=== PATIENT | female | born 1985 | race Caucasian/White ===

== ENCOUNTER 2016-06-28 11:09 | Emergency (ER) | payer BC ==
[~2016-06-28] VITALS: Ht 175.3 cm; Wt 76.2 kg
[~2016-06-28 11:09] MED LIST: CITA40TA19 PO; CYCL10TA9 PO; NAPR-243 PO; SPIR100T28 PO; ZLP10T PO; [UNRECOGNIZED DRUG - REMARK]
--- OUTSIDE RECORDS SUMMARY | 2016-06-28 11:15 | XMS REPORT | Continuity of Care Document ---
Author Author [facility] Organization [facility] Address Unknown Phone Unavailable Allergies Medications Problems Date Dx Coded Attending Type Code Diagnosis Diagnosed By 11/24/2013 MICHELLE VYAS APRN V25.09 CONTRACEPTIVE COUNSELING - GENERAL 11/24/2013 MICHELLE VYAS APRN V25.09 CONTRACEPTIVE COUNSELING - GENERAL 01/06/2014 MICHELLE VYAS APRN V25.5 IMPLANON INSERTION Procedures Code [place] [address] IMPLANON INSERTION 01/06/2014 J7307 ETONOGESTREL IMPLANT SYSTEM 01/06/2014 69503 TEST, URINE (IN-HOUSE) 01/07/2014 Results Encounters ACCT No. Visit Date/Time Discharge Status Pt. Type Provider Facility Loc./Unit Complaint [id number] 04/30/2013 12:39:00 2012 23:59:59 CLS Outpatient [id number] 01/16/2013 07:59:00 2012 23:59:59 CLS Outpatient
[2016-06-28 12:00] LABS: BILIRUBIN,URINE NEGATIVE (NEGATIVE); KETONES,URINE NEGATIVE (NEGATIVE); LEUKOCYTE ESTERASE ,URINE 1+ (NEGATIVE); NITRITE,URINE NEGATIVE (NEGATIVE); PH,URINE 6 (5-9); PROTEIN,URINE NEGATIVE (NEGATIVE); UROBILINOGEN,URINE NORMAL (NORMAL)
[2016-06-28 12:11] LABS: WBC,URINE RARE /HPF
--- NOTE | 2016-06-28 12:18 | ED Abdominal Pain ---
General Chief Complaint: Abdominal/GI Problems Stated Complaint: ABD PAIN Nursing Triage Note: PT STATES SHE WAS STARTED ON TRUJENTA ABOUT 2 WEEKS AGO FOR TYPE II DIABETES, WAS DC'D DUE TO THE HEADACHES AND ABD PAIN THAT THE MED CAUSED. MED STOPPED ON 06/25/16. PT STILL HAS ABD PAIN, FEELS LIKE SHE CAN'T EAT ANYTHING WITHOUT FEELING FULL. DIARRHEA NOW, LAST NORMAL BM YESTERDAY, DENIES URINARY S/S. VOMITED ON 06/22/16 Sepsis Screen: No Definite Risk Source of Information: Patient Exam Limitations: No Limitations History of Present Illness Time Seen By Provider: 12:16 Initial Comments To ER with epigastric abdominal pain just beneath the xiphoid for the past 2 weeks. This is worsened by food and liquids. She does report loose stools that are light colored. She believes this may be her gallbladder she was started on Tardjenta for type II diabetes a few weeks ago and believes that the symptoms may have been secondary to the new medication but that medication was stopped due to her symptoms and her symptoms persist. She states to me that she does not believe this to be a viral infection Timing/Duration: 1-2 Days Severity/Quality: Moderate Location: RUQ, Epigastric Radiation: No Radiation Activities at Onset: None Associated Symptoms: Nausea/Vomiting Allergies and Home Medications Allergies Coded Allergies: No Known Drug Allergies (Unverified , 01/06/12) Home Medications DAILY (Reported) Citalopram Hydrobromide 40 Mg Tablet 1 EACH PO DAILY (Reported) Cyclobenzaprine Hcl 10 Mg Tablet #15 1 EACH PO Q8HR PRN FOR MUSCLE SPASMS Prescribed by: TONO HARRINGTON on 01/06/12 1202 Famotidine 20 Mg Tablet #14 20 MG PO BID Prescribed by: VERO GARDINER on 06/28/16 1253 Naproxen 500 Mg Tablet #20 1 EACH PO TID PRN FOR PAIN Prescribed by: TONO HARRINGTON on 01/06/12 1202 Spironolactone 100 Mg Tablet 100 MG PO (Reported) Zolpidem Tartrate 10 Mg Tab 10 MG PO HS (Reported) Review of Systems Constitutional: see HPI EENTM: No Symptoms Reported Respiratory: No Symptoms Reported Cardiovascular: No Symptoms Reported Gastrointestinal: See HPI Abdominal Pain Nausea Genitourinary: No Symptoms Reported Musculoskeletal: no symptoms reported Skin: no symptoms reported Psychiatric/Neurological: No Symptoms Reported Endocrine: No Symptoms Reported Hematologic/Lymphatic: No Symptoms Reported Past Xaotwdq-Odtxqk-Ylctco Hx Patient Social History Alcohol Use: Occasionally Uses Recreational Drug Use: No Smoking Status: Never a Smoker Recent Foreign Travel: No Contact w/Someone Who Travel: No Recent Infectious Disease Expo: No Recent Hopitalizations: No Seasonal Allergies Seasonal Allergies: No Surgeries HX Surgeries: Yes Surgeries: Appendectomy, Cystectomy Respiratory Hx Respiratory Disorders: No Cardiovascular Hx Cardiac Disorders: No Neurological Hx Neurological Disorders: No Reproductive System : No HIV/AIDS: Yes Female Reproductive Disorders: Ovarian Cyst, Polycystic Ovarian Dis Genitourinary Hx Genitourinary Disorders: No Gastrointestinal Hx Gastrointestinal Disorders: No Musculoskeletal Hx Musculoskeletal Disorders: No Endocrine Hx Endocrine Disorders: Yes (POSSIBLY TYPE II) Endocrine Disorders: Diabetes, Non-Insulin dep HEENT HX ENT Disorders: No Cancer Hx Cancer: No Psychosocial Hx Psychiatric Problems: No Integumentary HX Skin/Integumentary Disorder: No Blood Transfusions Hx Blood Disorders: Yes (ANEMIC) Physical Exam Vital Signs VS - Last 72 Hours, by Label 06/28/16 11:42 Temp 97.8 Pulse 71 Resp 20 B/P 117/74 Pulse Ox 98 O2 Delivery Room Air Capillary Refill : Less Than 3 Seconds General Appearance: WD/WN no apparent distress HEENT: PERRL/EOMI normal ENT inspection Neck: non-tender full range of motion Respiratory: normal breath sounds no respiratory distress no accessory muscle use Cardiovascular: regular rate, rhythm no murmur Gastrointestinal: non tender soft Extremities: normal range of motion non-tender Neurologic/Psychiatric: alert normal mood/affect oriented x 3 Skin: normal color warm/dry Progress/Results/Core Measures Results/Orders Lab Results Laboratory Tests Test 06/28/16 11:50 06/28/16 12:00 Range/Units Urine Bacteria NEGATIVE /HPF Urine Bilirubin NEGATIVE NEGATIVE Urine Casts NONE /LPF Urine Clarity CLEAR Urine Color YELLOW Urine Crystals NONE /LPF Urine Culture Indicated NO Urine Glucose (UA) NEGATIVE NEGATIVE Urine Ketones NEGATIVE NEGATIVE Urine Leukocyte Esterase 1+ H NEGATIVE Urine Mucus NEGATIVE /LPF Urine Nitrite NEGATIVE NEGATIVE Urine Protein NEGATIVE NEGATIVE Urine RBC NONE /HPF Urine RBC (Auto) NEGATIVE NEGATIVE Urine Specific [place] 1.015 L 1.016-1.022 Urine Squamous Epithelial Cells 2-5 /HPF Urine Urobilinogen NORMAL NORMAL MG/DL Urine WBC RARE /HPF Urine pH 6 5-9 Alanine Aminotransferase (ALT/SGPT) 23 0-55 U/L Albumin 4.2 3.2-4.5 G/DL Alkaline Phosphatase 93 40-136 U/L Anion Gap 11 5-14 MMOL/L Aspartate Amino Transf (AST/SGOT) 29 5-34 U/L BUN/Creatinine Ratio 14 Basophils # (Auto) 0.0 0.0-0.1 10^3/uL Basophils (%) (Auto) 1 0-10 % Blood Urea Nitrogen 10 7-18 MG/DL Calcium Level 9.0 8.5-10.1 MG/DL Carbon Dioxide Level 25 21-32 MMOL/L Chloride Level 104 98-107 MMOL/L Creatinine 0.72 0.60-1.30 MG/DL Eosinophils # (Auto) 0.1 0.0-0.3 10^3/uL Eosinophils (%) (Auto) 2 0-10 % Estimat Glomerular Filtration Rate > 60 Glucose Level 69 L 70-105 MG/DL Hematocrit 41 35-52 % Hemoglobin 13.9 11.5-16.0 G/DL Lipase 29 8-78 U/L Lymphocytes # (Auto) 1.6 1.0-4.0 X 10^3 Lymphocytes (%) (Auto) 38 12-44 % Mean Corpuscular Hemoglobin 30 25-34 PG Mean Corpuscular Hemoglobin Concent 34 32-36 G/DL Mean Corpuscular Volume 88 80-99 FL Mean Platelet Volume 10.0 7.4-10.4 FL Monocytes # (Auto) 0.5 0.0-1.0 X 10^3 Monocytes (%) (Auto) 12 0-12 % Neutrophils # (Auto) 2.0 1.8-7.8 X 10^3 Neutrophils (%) (Auto) 48 42-75 % Platelet Count 315 130-400 10^3/uL Potassium Level 3.7 3.6-5.0 MMOL/L Red Blood Count 4.66 4.35-5.85 10^6/uL Red Cell Distribution Width 12.2 10.0-14.5 % Sodium Level 140 135-145 MMOL/L Total Bilirubin 0.4 0.1-1.0 MG/DL Total Protein 7.3 6.4-8.2 G/DL White Blood Count 4.3 4.3-11.0 10^3/uL My Orders Orders-VERO GARDINER APRN Cbc With Automated Diff (06/28/16 11:55) Lipase (06/28/16 11:55) Urine Bedside (06/28/16 11:55) Comprehensive Metabolic Panel (06/28/16 11:55) Us Gallbladder 80508 (06/28/16 12:14) Antacid Suspension (Mylanta Suspension (06/28/16 13:00) Lidocaine 2% Viscous 15 Ml (Xylocaine Vi (06/28/16 13:00) Medications Given in ED Current Medications Medications Dose Ordered Sig/Marco Route Start Time Stop Time Status Last Admin Dose Admin Al Hydrox/Mg Hydrox/Simethicone 30 ml ONCE ONCE PO 06/28/16 13:00 06/28/16 13:01 DC 06/28/16 13:09 30 ML Lidocaine HCl 15 ml ONCE ONCE PO 06/28/16 13:00 06/28/16 13:01 DC 06/28/16 13:09 15 ML Vital Signs/I&O Vital Sign - Last 12Hours 06/28/16 11:42 Temp 97.8 Pulse 71 Resp 20 B/P 117/74 Pulse Ox 98 O2 Delivery Room Air Blood Pressure Mean: 88 Departure Communication Progress Notes 1326-patient does report improvement in pain after the GI cocktail. Impression Impression: Primary Impression: Epigastric pain Disposition: HOME, SELF-CARE Condition: Stable Departure-Patient Inst. Decision time for Depature: 12:52 Referrals: SALLIE SANTIAGO DO (PCP/Family) Primary Care Physician Patient Instructions: No Instuctions Given Add. Discharge Instructions: 1. Follow-up with Dr. Santiago or Annette to further evaluate the cause of your discomfort which may include a hepatobiliary scan 2. Acid reducers as prescribed All discharge instructions reviewed with patient and/or family. Voiced understanding. Scripts Pantoprazole Sodium (Protonix)40 Mg Tablet.dr40 Mg PO DAILY #30 TAB Prov:VERO GARDINER APRN 06/28/16 Famotidine (Pepcid)20 Mg [id number] Mg PO BID #14 TAB Prov:VERO GARDINER APRN 06/28/16 Copy Copies To 1: SALLIE SANTIAGO PETER J APRN Jun 28, 2016 12:18
[2016-06-28 12:22] LABS: BASOPHILS % (AUTO) 1 % (0-10); EOSINOPHILS # (AUTO) 0.1 10^3/uL (0.0-0.3); EOSINOPHILS % (AUTO) 2 % (0-10); LYMPHOCYTES # (AUTO) 1.6 X 10^3 (1.0-4.0); LYMPHOCYTES % (AUTO) 38 % (12-44); MEAN CORPUSCULAR HEMOGLOBIN 30 PG (25-34); MEAN CORPUSCULAR HGB CONC 34 G/DL (32-36); MEAN CORPUSCULAR VOLUME 88 FL (80-99); MONOCYTES # (AUTO) 0.5 X 10^3 (0.0-1.0); MONOCYTES % (AUTO) 12 % (0-12); NEUTROPHILS % (AUTO) 48 % (42-75); PLATELET COUNT 315 10^3/uL (130-400); RED BLOOD COUNT 4.66 10^6/uL (4.35-5.85); RED CELL DISTRIBUTION WIDTH 12.2 % (10.0-14.5); WHITE BLOOD COUNT 4.3 10^3/uL (4.3-11.0)
[2016-06-28 12:43] LABS: ALANINE AMINOTRANSFERASE 23 U/L (0-55); ALBUMIN 4.2 G/DL (3.2-4.5); ANION GAP 11 MMOL/L (5-14); ASPARTATE AMINO TRANSFERASE 29 U/L (5-34); BILIRUBIN,TOTAL 0.4 MG/DL (0.1-1.0); BLOOD UREA NITROGEN 10 MG/DL (7-18); BUN/CREATININE RATIO 14; CARBON DIOXIDE 25 MMOL/L (21-32); CHLORIDE 104 MMOL/L (98-107); CREATININE SERUM 0.72 MG/DL (0.60-1.30); GFR ESTIMATED > 60; GLUCOSE 69 MG/DL (70-105); LIPASE 29 U/L (8-78); POTASSIUM 3.7 MMOL/L (3.6-5.0); SODIUM 140 MMOL/L (135-145); TOTAL PROTEIN 7.3 G/DL (6.4-8.2)
[2016-06-28] MEDS ORDERED: FAMO-119 PO (12:53)
[2016-06-28] MEDS ORDERED: LIDOCAINE 2% VISCOUS 15 ML UDC PO ONE (13:00)
[2016-06-28] MEDS ORDERED: ANTACID SUSP 30 ML UDC (MYLANTA) PO ONE (13:00)
[2016-06-28] MEDS ORDERED: PANT40TA2 PO (13:26)
[2016-06-28 13:37] VITALS: BP 105/63
--- NOTE | 2016-06-28 13:37 | Diagnostic Imaging Report ---
PROCEDURE: US Gallbladder. TECHNIQUE: Multiple real-time grayscale images were obtained over the right upper quadrant in various projections. INDICATION: Right upper quadrant pain with nausea. FINDINGS: The pancreas appears unremarkable. The liver has fairly homogeneous parenchyma with a simple cyst measuring 8 mm noted in the lateral aspect of the right hepatic lobe. Hepatopetal flow in the portal vein is noted. The CBD is 2 mm in caliber. The gallbladder demonstrates no stones or wall thickening. No pericholecystic fluid. No fluid collection is seen. Sonographic Bennett's sign is reportedly negative. IMPRESSION: No significant abnormality. Dictated by: Dictated on workstation # [id number]
== END 2016-06-28 13:37 | disposition home or self-care (01) ==
LOC: EDUNIT# 11:09 → ER 11:11
DX: R10.13 Epigastric pain (principal); R19.7 Diarrhea, unspecified; E11.9 Type 2 diabetes mellitus without complications; Z79.84 Long term (current) use of oral hypoglycemic drugs
CPT/HCPCS: 36415; 76705; 80053; 81000; 83690; 84703; 85025

== ENCOUNTER 2016-07-05 11:04 | Outpatient (CLI) | payer BC ==
[~2016-07-05] VITALS: Ht 175.3 cm; Wt 76.2 kg
[~2016-07-05 11:04] MED LIST changes: +FAMO-119 PO; +PANT40TA2 PO
--- OUTSIDE RECORDS SUMMARY | 2016-07-05 11:07 | XMS REPORT | Continuity of Care Document ---
Author Author [facility] Organization [facility] Address Unknown Phone Unavailable Allergies Active Description Code Type Severity Reaction Onset Reported/Identified Relationship to Patient Clinical Status Yes No Known Drug Allergies [id number] Drug Allergy Unknown N/ A 01/06/2012 Medications Problems Date Dx Coded Attending Type Code Diagnosis Diagnosed By 01/06/2012 Ot 846.0 SPRAIN LUMBOSACRAL 01/06/2012 Ot 922.31 BACK CONTUSION 01/06/2012 Ot 959.19 OTH INJURY OF OTHER SITES OF TRUNK 01/06/2012 Ot E000.8 OTHER EXTERNAL CAUSE STATUS 01/06/2012 Ot E849.0 ACCIDENT IN HOME 01/06/2012 Ot E880.9 FALL ON STAIR/STEP NEC 11/24/2013 MICHELLE VYAS APRN V25.09 CONTRACEPTIVE COUNSELING - GENERAL 11/24/2013 MICHELLE VYAS APRN V25.09 CONTRACEPTIVE COUNSELING - GENERAL 01/06/2014 MICHELLE VYAS APRN V25.5 IMPLANON INSERTION 06/27/2016 Ot 280.9 IRON DEFIC ANEMIA NOS 06/27/2016 Ot 792.1 ABN FIND-STOOL CONTENTS 06/27/2016 Ot V72.84 EXAM PRE-OPERATIVE NOS 06/27/2016 LUIS A CYR ANALYSIS INTERNSHIP Ot 611.72 LUMP OR MASS IN BREAST 06/27/2016 LUIS A YCR ANALYSIS INTERNSHIP Ot V16.3 FAMILY HX-BREAST MALIG 06/27/2016 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 A 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 Ot 240.9 GOITER NOS 06/29/2016 VERO GARDINER APRN Ot E11.9 TYPE 2 DIABETES MELLITUS WITHOUT COMPLIC 06/29/2016 VERO GARDINER APRN Ot R10.13 EPIGASTRIC PAIN 06/29/2016 VERO GARDINER APRN Ot R19.7 DIARRHEA, UNSPECIFIED 06/29/2016 VERO GARDINER APRN Ot Z79.84 ALF (CURRENT) USE OF ORAL HYPOGLYC Procedures Code Description [place] [address] IMPLANON INSERTION 01/06/2014 J7307 ETONOGESTREL IMPLANT SYSTEM 01/06/2014 23915 TEST, URINE (IN-HOUSE) 01/07/2014 Results Test Result Range Complete urinalysis with reflex to culture - 06/28/16 11:50 Urine color determination YELLOW NRG Urine clarity determination CLEAR NRG Urine pH measurement by test strip 6 5- 9 Specific gravity of urine by test strip 1.015 1.016-1.022 Urine protein assay by test strip, semi-quantitative NEGATIVE NEGATIVE Urine glucose detection by automated test strip NEGATIVE NEGATIVE Erythrocytes detection in urine sediment by light microscopy NEGATIVE NEGATIVE Urine ketones detection by automated test strip NEGATIVE NEGATIVE Urine nitrite detection by test strip NEGATIVE NEGATIVE Urine total bilirubin detection by test strip NEGATIVE NEGATIVE Urine urobilinogen measurement by automated test strip (mass/volume) NORMAL NORMAL Urine leukocyte esterase detection by dipstick 1+ NEGATIVE Automated urine sediment erythrocyte count by microscopy (number/high power field) NONE NRG Automated urine sediment leukocyte count by microscopy (number/high power field ) RARE NRG Bacteria detection in urine sediment by light microscopy NEGATIVE NRG Squamous epithelial cells detection in urine sediment by light microscopy 2-5 NRG Crystals detection in urine sediment by light microscopy NONE NRG Casts detection in urine sediment by light microscopy NONE NRG Mucus detection in urine sediment by light microscopy NEGATIVE NRG Complete urinalysis with reflex to culture NO NRG Complete blood count (CBC) with automated white blood cell (WBC) differential - 06/28/16 12:00 Blood leukocytes automated count (number/volume) 4.3 10*3/ uL 4.3-11.0 Blood erythrocytes automated count (number/volume) 4.66 10*6 /uL 4.35-5.85 Venous blood hemoglobin measurement (mass/volume) 13.9 g/dL 11.5-16.0 Blood hematocrit (volume fraction) 41 % 35-52 Automated erythrocyte mean corpuscular volume 88 [foz_us] 80-99 Automated erythrocyte mean corpuscular hemoglobin (mass per erythrocyte) 30 pg 25-34 Automated erythrocyte mean corpuscular hemoglobin concentration measurement ( mass/volume) 34 g/dL 32-36 Automated erythrocyte distribution width ratio 12.2 % 10.0-14.5 Automated blood platelet count (count/volume) 315 10*3/uL 130-400 Automated blood platelet mean volume measurement 10.0 [foz_ us] 7.4-10.4 Automated blood neutrophils/100 leukocytes 48 % 42-75 Automated blood lymphocytes/100 leukocytes 38 % 12-44 Blood monocytes/100 leukocytes 12 % 0-12 Automated blood eosinophils/100 leukocytes 2 % 0-10 Automated blood basophils/100 leukocytes 1 % 0-10 Blood neutrophils automated count (number/volume) 2.0 10*3 1.8-7.8 Blood lymphocytes automated count (number/volume) 1.6 10*3 1.0-4.0 Blood monocytes automated count (number/volume) 0.5 10*3 0.0-1.0 Automated eosinophil count 0.1 10*3/uL 0.0-0.3 Automated blood basophil count (count/volume) 0.0 10*3/uL 0.0-0.1 Comprehensive metabolic panel - 06/28/16 12:00 Serum or plasma sodium measurement (moles/volume) 140 mmol/ L 135-145 Serum or plasma potassium measurement (moles/volume) 3.7 mmol/L 3.6-5.0 Serum or plasma chloride measurement (moles/volume) 104 mmol /L 98-107 Carbon dioxide 25 mmol/L 21-32 Serum or plasma anion gap determination (moles/volume) 11 mmol/L 5-14 Serum or plasma urea nitrogen measurement (mass/volume) 10 mg/dL 7-18 Serum or plasma creatinine measurement (mass/volume) 0.72 mg /dL 0.60-1.30 Serum or plasma urea nitrogen/creatinine mass ratio 14 NRG Serum or plasma creatinine measurement with calculation of estimated glomerular filtration rate > NRG Serum or plasma glucose measurement (mass/volume) 69 mg/dL 70-105 Serum or plasma calcium measurement (mass/volume) 9.0 mg/dL 8.5-10.1 Serum or plasma total bilirubin measurement (mass/volume) 0.4 mg/dL 0.1-1.0 Serum or plasma alkaline phosphatase measurement (enzymatic activity/volume) 93 U/L 40-136 Serum or plasma aspartate aminotransferase measurement (enzymatic activity/ volume) 29 U/L 5-34 Serum or plasma alanine aminotransferase measurement (enzymatic activity/volume ) 23 U/L 0-55 Serum or plasma protein measurement (mass/volume) 7.3 g/dL 6.4-8.2 Serum or plasma albumin measurement (mass/volume) 4.2 g/dL 3.2-4.5 Lipase - 06/28/16 12:00 Lipase 29 U/L 8-78 Encounters ACCT No. Visit Date/Time Discharge Status Pt. Type Provider Facility Loc./Unit Complaint [id number] 06/28/2016 11:11:00 2016 13:37:00 DIS Outpatient VERO GARDINER APRN [facility] ER ABD PAIN [id number] 04/30/2013 12:39:00 2012 23:59:59 CLS Outpatient FISCHERLUIS A MICHELLE [employer] GAU[employer] UNIT OPERATOR [facility] RAD THYROMEGALY [id number] 01/16/2013 07:59:00 2012 23:59:59 CLS Outpatient LUIS A CYR APRN [facility] RAD NODULES, [id number] 03/07/2012 11:20:00 Document Registration [id number] 03/05/2012 07:38:00 Document Registration [id number] 01/06/2012 10:46:00 Document Registration
[2016-07-06] MEDS ORDERED: HYDR-3812 PO (10:56)
== END 2016-07-05 11:14 ==
LOC: PREOP 11:04
PROVIDERS: ATTEND Surgery
DX: Z01.818 Encounter for other preprocedural examination (principal); K82.8 Other specified diseases of gallbladder

== ENCOUNTER 2016-07-06 08:01 | Day surgery (SDC) | payer BC ==
--- OUTSIDE RECORDS SUMMARY | 2016-07-06 08:04 | XMS REPORT | Continuity of Care Document ---
Author Author [facility] Organization [facility] Address Unknown Phone Unavailable Care Team Providers Care Crane Crew Supervisor Name Role Phone SALLIE FISCHER DO PCP Insurance Providers Payer Name Policy Number Subscriber Name Relationship [facility] [id number] Elizabeth Espinal Self / Same As Patient Advance Directives Directive Response Recorded Date/Time Advance Directives No 07/05/16 11:06am Health Care Power of Senior Animator No 07/05/16 11:06am Organ Donor Yes 07/05/16 11:06am Resuscitation Status Full Code 07/05/16 11:06am Problems Active Problems Medical Problem Onset Date Status Epigastric pain Unknown Acute Medications No known medications. Social History Social History Problem Response Recorded Date/Time Alcohol Use Occasionally Uses 07/05/2016 11:06am Recreational Drug Use No 07/05/2016 11:06am Recent Foreign Travel No 07/05/2016 11:05am Recent Infectious Disease Exposure No 07/05/2016 11:05am HIV/AIDS Yes 06/28/2016 11:47am Smoking Status Never a Smoker 07/05/2016 11:06am Recent Hopitalizations No 07/05/2016 11:06am Query Response Start Date Stop Date Smoking Status Never a Smoker Hospital Discharge Instructions No hospital discharge instructions. Plan of Care Discharge Date 07/05/16 11:14am Prescriptions See Medication Section Functional Status No functional status results. Allergies, Adverse Reactions, Alerts No known allergies. Immunizations No immunization records. Vital Signs Acute Vital Signs Vital Response Date/Time Temperature (Fahrenheit) 97.8 degrees F (97.6 - 99.5) 06/28/2016 1:37pm Temperature (Calculated Celsius) 36.26517 degrees C (36.4 - 37.5) 06/28/2016 1:37pm Temperature Source Temporal 06/28/2016 1:37pm Pulse Rate (adult) 69 bpm (60 - 90) 06/28/2016 1:37pm Respiratory Rate 20 bpm (12 - 24) 06/28/2016 1:37pm O2 Sat by Pulse Oximetry 97 % (88 - 100) 06/28/2016 1:37pm Blood Pressure 105/63 mm Hg 06/28/2016 1:37pm Blood Pressure Mean 88 mm Hg 06/28/2016 11:42am Pain Numeric Pain Scale 2 06/28/2016 1:37pm Height (Feet) 5 feet 07/05/2016 11:05am Height (Inches) 9.00 inches 07/05/2016 11:05am Height (Calculated Centimeters) 175.638681 cm 07/05/2016 11:05am Weight (Pounds) 168 pounds 07/05/2016 11:05am Weight (Ounces) 0.0 oz 07/05/2016 11:05am Weight (Calculated Grams) 19850.52 gm 07/05/2016 11:05am Weight (Calculated Kilograms) 76.319433 kilograms 07/05/2016 11:05am Calculated BMI 24.8 07/05/2016 11:05am Capillary Refill Capillary Refill Less Than 3 Seconds 06/28/2016 11:42am Results Laboratory Results Test Name Result Units Flags Reference Collection Date/Time Result Date/ Time Comments White Blood Count 4.3 10^3/uL 4.3-11.0 06/28/2016 12:00pm 06/28/2016 12 :22pm Red Blood Count 4.66 10^6/uL 4.35-5.85 06/28/2016 12:00pm 06/28/2016 12 :22pm Hemoglobin 13.9 G/DL 11.5-16.0 06/28/2016 12:00pm 06/28/2016 12:22pm Hematocrit 41 % 35-52 06/28/2016 12:00pm 06/28/2016 12:22pm Mean Corpuscular Volume 88 FL 80-99 06/28/2016 12:00pm 06/28/2016 12: 22pm Mean Corpuscular Hemoglobin 30 PG 25-34 06/28/2016 12:00pm 06/28/2016 12:22pm Mean Corpuscular Hemoglobin Concent 34 G/DL 32-36 06/28/2016 12:00pm 12:22pm Red Cell Distribution Width 12.2 % 10.0-14.5 06/28/2016 12:00pm 2016 12:22pm Platelet Count 315 10^3/uL 130-400 06/28/2016 12:00pm 06/28/2016 12: 22pm Mean Platelet Volume 10.0 FL 7.4-10.4 06/28/2016 12:00pm 06/28/2016 12: 22pm Neutrophils (%) (Auto) 48 % 42-75 06/28/2016 12:00pm 06/28/2016 12: 22pm Lymphocytes (%) (Auto) 38 % 12-44 06/28/2016 12:00pm 06/28/2016 12: 22pm Monocytes (%) (Auto) 12 % 0-12 06/28/2016 12:00pm 06/28/2016 12:22pm Eosinophils (%) (Auto) 2 % 0-10 06/28/2016 12:00pm 06/28/2016 12:22pm Basophils (%) (Auto) 1 % 0-10 06/28/2016 12:00pm 06/28/2016 12:22pm Neutrophils # (Auto) 2.0 X 10^3 1.8-7.8 06/28/2016 12:00pm 06/28/2016 12:22pm Lymphocytes # (Auto) 1.6 X 10^3 1.0-4.0 06/28/2016 12:00pm 06/28/2016 12:22pm Monocytes # (Auto) 0.5 X 10^3 0.0-1.0 06/28/2016 12:00pm 06/28/2016 12: 22pm Eosinophils # (Auto) 0.1 10^3/uL 0.0-0.3 06/28/2016 12:00pm 06/28/2016 12:22pm Basophils # (Auto) 0.0 10^3/uL 0.0-0.1 06/28/2016 12:00pm 06/28/2016 12 :22pm Urine Color YELLOW 06/28/2016 11:50am 06/28/2016 12:11pm Urine Clarity CLEAR 06/28/2016 11:50am 06/28/2016 12:11pm Urine pH 6 5-9 06/28/2016 11:50am 06/28/2016 12:11pm Urine Specific [place] 1.015 * 1.016-1.022 06/28/2016 11:50am 2016 12:11pm Urine Protein NEGATIVE NEGATIVE 06/28/2016 11:50am 06/28/2016 12: 11pm Urine Glucose (UA) NEGATIVE NEGATIVE 06/28/2016 11:50am 06/28/2016 12 :11pm Urine RBC (Auto) NEGATIVE NEGATIVE 06/28/2016 11:50am 06/28/2016 12: 11pm Urine Ketones NEGATIVE NEGATIVE 06/28/2016 11:50am 06/28/2016 12: 11pm Urine Nitrite NEGATIVE NEGATIVE 06/28/2016 11:50am 06/28/2016 12: 11pm Urine Bilirubin NEGATIVE NEGATIVE 06/28/2016 11:50am 06/28/2016 12: 11pm Urine Urobilinogen NORMAL MG/DL NORMAL 06/28/2016 11:50am 06/28/2016 12 :11pm Urine Leukocyte Esterase 1+ * NEGATIVE 06/28/2016 11:50am 06/28/2016 12 :11pm Urine RBC NONE /HPF 06/28/2016 11:50am 06/28/2016 12:11pm Urine WBC RARE /HPF 06/28/2016 11:50am 06/28/2016 12:11pm Urine Bacteria NEGATIVE /HPF 06/28/2016 11:50am 06/28/2016 12:11pm Urine Squamous Epithelial Cells 2-5 /HPF 06/28/2016 11:50am 2016 12:11pm Urine Crystals NONE /LPF 06/28/2016 11:50am 06/28/2016 12:11pm Urine Casts NONE /LPF 06/28/2016 11:50am 06/28/2016 12:11pm Urine Mucus NEGATIVE /LPF 06/28/2016 11:50am 06/28/2016 12:11pm Urine Culture Indicated NO 06/28/2016 11:50am 06/28/2016 12:11pm Sodium Level 140 MMOL/L 135-145 06/28/2016 12:00pm 06/28/2016 12:44pm Potassium Level 3.7 MMOL/L 3.6-5.0 06/28/2016 12:00pm 06/28/2016 12: 44pm Chloride Level 104 MMOL/L 98-107 06/28/2016 12:00pm 06/28/2016 12:44pm Carbon Dioxide Level 25 MMOL/L 21-32 06/28/2016 12:00pm 06/28/2016 12: 44pm Anion Gap 11 MMOL/L 5-14 06/28/2016 12:00pm 06/28/2016 12:44pm Blood Urea Nitrogen 10 MG/DL 7-18 06/28/2016 12:00pm 06/28/2016 12: 44pm Creatinine 0.72 MG/DL 0.60-1.30 06/28/2016 12:00pm 06/28/2016 12:44pm BUN/Creatinine Ratio 14 06/28/2016 12:00pm 06/28/2016 12:44pm Estimat Glomerular Filtration Rate > 60 06/28/2016 12:00pm 2016 12:44pm GFR INTERPRETIVE DATA UNITS FOR ESTIMATED GFR (eGFR): mL/min/1.73 M2 REFERENCE RANGE FOR ESTIMATED GFR (eGFR) eGFR NORMAL eGFR >60 MODERATELY DECREASED eGFR 30-59 SEVERLY DECREASED eGFR 15-29 KIDNEY FAILURE <15 (OR DIALYSIS) Glucose Level 69 MG/DL L 70-105 06/28/2016 12:00pm 06/28/2016 12:44pm Calcium Level 9.0 MG/DL 8.5-10.1 06/28/2016 12:00pm 06/28/2016 12:44pm Total Bilirubin 0.4 MG/DL 0.1-1.0 06/28/2016 12:00pm 06/28/2016 12: 44pm Alkaline Phosphatase 93 U/L 40-136 06/28/2016 12:00pm 06/28/2016 12: 44pm Aspartate Amino Transf (AST/SGOT) 29 U/L 5-34 06/28/2016 12:00pm 2016 12:44pm Alanine Aminotransferase (ALT/SGPT) 23 U/L 0-55 06/28/2016 12:00pm 12:44pm Total Protein 7.3 G/DL 6.4-8.2 06/28/2016 12:00pm 06/28/2016 12:44pm Albumin 4.2 G/DL 3.2-4.5 06/28/2016 12:00pm 06/28/2016 12:44pm Lipase 29 U/L 8-78 06/28/2016 12:00pm 06/28/2016 12:44pm Procedures No known history of procedures. Encounters Encounter Location Arrival/Admit Date Discharge/Depart Date Attending Provider Departed Clinic [facility] 07/05/16 11:04am 07/05/16 11: 14am WALLACE DUBOSE MD Departed Emergency Room [facility] 06/28/16 11:11am 1:37pm VERO GARDINER APRN
--- OUTSIDE RECORDS SUMMARY | 2016-07-06 08:05 | XMS REPORT | Continuity of Care Document ---
Author Author [facility] Organization [facility] Address Unknown Phone Unavailable Care Team Providers Care Intraoperative Neuro Tech Name Role Phone SALLIE FISCHER DO PCP Insurance Providers Payer Name Policy Number Subscriber Name Relationship [facility] [id number] Elizabeth Espinal Self / Same As Patient Advance Directives Directive Response Recorded Date/Time Advance Directives No 07/05/16 11:06am Health Care Power of Biodiesel Product Manager No 07/05/16 11:06am Organ Donor Yes 07/05/16 [...] - 99.5) 06/28/2016 1:37pm Temperature (Calculated Celsius) 36.63069 degrees C (36.4 - 37.5) 06/28/2016 1:37pm [...] 9.00 inches 07/05/2016 11:05am Height (Calculated Centimeters) 175.832852 cm 07/05/2016 11:05am Weight (Pounds) 168 pounds 07/05/2016 11:05am Weight (Ounces) 0.0 oz 07/05/2016 11:05am Weight (Calculated Grams) 73305.52 gm 07/05/2016 11:05am Weight (Calculated Kilograms) 76.439978 kilograms 07/05/2016 11:05am Calculated BMI 24.8 07/05/2016 [...] 5-9 06/28/2016 11:50am 06/28/2016 12:11pm Urine Specific [place] 1.015 * 1.016-1.022 06/28/2016 11:50am 2016 12:11pm [...] Discharge/Depart Date Attending Provider Departed Clinic [facility] 07/05/16 11:04am 07/05/16 11: 14am WALLACE DUBOSE MD Departed Emergency Room [facility] 06/28/16 11:11am 1:37pm VERO GARDINER APRN
[2016-07-06] MEDS ORDERED: NS (IVPB) 50 ML ONE (08:24)
[2016-07-06] MEDS ORDERED: ceFAZolin 1,000 MG (ANCEF) VIAL ONE (08:24)
[2016-07-06] MEDS ORDERED: metroNIDAZOLE 500MG/100ML IVPB 100 ML ONE (08:24)
[2016-07-06] MEDS ORDERED: ceFAZolin 1 GM/NS 50 ML IVPB IV ONE ×2 (08:30)
[2016-07-06] MEDS ORDERED: metroNIDAZOLE 500 MG/100 ML IVPB (PRE-MIX) IV ONE (08:30)
--- NOTE | 2016-07-06 08:31 | Progress Note-Pre Operative ---
Pre-Operative Progress Note H&P Reviewed The H&P was reviewed, patient examined and no changes noted. Date H&P Reviewed: Jul 06, 2016 Time H&P Reviewed: 08:30 Pre-Operative Diagnosis: Gallbladder Dyskinesia WALLACE DUBOSE MD Jul 06, 2016 8:31 am
[2016-07-06] MEDS ORDERED: BUP/EPI 0.25% 1:200,000 (MARCAINE) 30 ML VIAL ONE (08:50)
[2016-07-06] MEDS ORDERED: LACTATED RINGERS 1,000 ML IV PRN (09:17)
[2016-07-06] MEDS ORDERED: proPOfol 200 MG/20 ML (DIPRIVAN) VIAL IV ONE (09:20)
[2016-07-06] MEDS ORDERED: SEVOFLURANE (ULTANE) 15 ML INHAL SOLN ONE ×3 (09:20→10:44)
[2016-07-06] MEDS ORDERED: LIDOCAINE PF 2% 10 ML (XYLOCAINE) AMP ONE (09:20)
[2016-07-06] MEDS ORDERED: MIDAZOLAM 2 MG/2 ML (VERSED) VIAL ONE (09:22)
[2016-07-06] MEDS ORDERED: fentaNYL INJECTION 100 MCG/2 ML AMP ONE ×4 (09:22→11:34)
[2016-07-06] MEDS ORDERED: ONDANSETRON 4 MG/2 ML (SDV) Z0FRAN ONE (09:25)
[2016-07-06 09:52] VITALS: BP 105/58
[2016-07-06] MEDS ORDERED: LACTATED RINGERS 1,000 ML IV ONE (10:11)
[2016-07-06] MEDS ORDERED: NEOSTIGMINE (BLOXIVERZ ) 1 MG/1ML 10 ML VIAL ONE (10:40)
[2016-07-06] MEDS ORDERED: GLYCOPYRROLATE 0.2 MG/ML (ROBINUL) 2 ML VIAL ONE (10:40)
[2016-07-06] MEDS ORDERED: HYDR-3812 PO (10:56)
--- NOTE | 2016-07-06 10:56 | Progress Note-Post Operative ---
Post-Operative Progess Note Pre-Operative Diagnosis Gallbladder Dyskinesia Post-Operative Diagnosis same Post-Op Procedure Note Date of Procedure: Jul 06, 2016 Name of Procedure: robotic-assisted cholecystectomy Anesthesia Type Gen. Estimated blood loss (mL): minimal Specimen(s) collected gallbladder WALLACE DUBOSE MD Jul 06, 2016 10:56 am
--- NOTE | 2016-07-06 10:57 | Discharge Inst-Simple/Standard ---
Discharge Inst-Standard Discharge Medications New, Converted or Re-Newed RX: RX on Chart Patient Instructions/Follow Up Plan of Care/Instructions/FU: dressings off in 48 hours. Incentive spirometry. Follow-up in 3 weeks. Activity as Tolerated: Yes Discharge Diet: No Restrictions WALLACE DUBOSE MD Jul 06, 2016 10:57 am
[2016-07-06] MEDS ORDERED: morphine INJ 10 MG/ML 1ML (SYR OR VIAL) ONE (11:03)
[2016-07-06] MEDS ORDERED: MEPERIDINE (DEMEROL) INJ 50 MG/ML IVP PRN (11:15)
[2016-07-06] MEDS ORDERED: ONDANSETRON 4 MG/2 ML (SDV) Z0FRAN IVP PRN (11:15)
[2016-07-06] MEDS ORDERED: PROMETHAZINE INJ 25 MG/ML (PHENERGAN) AMP IVP PRN (11:15)
[2016-07-06] MEDS: fentaNYL INJECTION 100 MCG/2 ML AMP IVP PRN ×5 (11:22→11:50)
[2016-07-06] MEDS ORDERED: KETOROLAC 30 MG/ML VIAL ONE (11:33)
[2016-07-06] MEDS ORDERED: PROMETHAZINE INJ 25 MG/ML (PHENERGAN) AMP ONE (11:51)
[2016-07-06] MEDS ORDERED: HYDROmorphone (DILAUDID) 2 MG/ML VIAL IV PRN (12:15)
[2016-07-06 12:40] VITALS: BP 115/64
[2016-07-06] MEDS ORDERED: HYDROcodone/APAP 5 MG/325 MG (LORTAB) TAB PO ONE (13:00)
[2016-07-06 13:10] VITALS: BP 112/64
[2016-07-06 13:40] VITALS: BP 115/71
[2016-07-06 13:50] VITALS: BP 115/71
--- NOTE | 2016-07-08 13:08 | OPERATIVE REPORT ---
PROCEDURE PHYSICIAN: WALLACE DUBOSE DATE OF PROCEDURE: 07/06/2016 PREOPERATIVE DIAGNOSIS: Gallbladder dyskinesia. POSTOPERATIVE DIAGNOSIS: Gallbladder dyskinesia. OPERATION: Robotic assisted cholecystectomy. SURGEON: Danny. ANESTHESIA: General anesthesia. BLOOD LOSS: Minimal. FLUIDS: 1800 mL of crystalloids. TYPE OF WOUND: Type II (clean-contaminant wound) INDICATION FOR THE PROCEDURE: This lady reported symptoms due to severe dyskinesia of the gallbladder. Therefore, she was offered minimally invasive cholecystectomy. Informed consent was obtained after reviewing the operative details and complications of wound infection, bile leak and persistence of her symptoms. DESCRIPTION OF PROCEDURE: She was placed supine on the operative table and general anesthesia induced using an endotracheal tube. A gram of Ancef and 500 mg of Flagyl were administered intravenously as prophylaxis against wound infection. Sequential compression devices were placed around her legs, to minimize the risk of venous thrombosis. Abdomen was prepared and draped in the usual sterile manner. A subumbilical incision was made and the pneumoperitoneum established using a Veress needle. Intra-abdominal pressure was maintained at 15 mmHg, using carbon dioxide insufflation. A 12 mm trocar was placed and anatomy visualized using the high definition, 3 dimensional laparoscope associated with da Mark system. Under direct view, I placed an 8 mm cannula over each side of the abdomen, followed by a 5 mm trocar over the left upper quadrant. The patient was then turned into steep reverse Trendelenburg position with the right side tilted up. The robotic system was then docked in place. The fundus of the gallbladder was retracted cephalad and the infundibulum grasped with Cadiere forceps. The peritoneum overlying Calot triangle was incised using hook cautery, delineating the cystic duct and artery. Both were divided between locking clips. Cholecystectomy was then completed using hook cautery. Subhepatic space was then irrigated with saline and the gallbladder placed in an Endo Catch bag to be removed via the subumbilical trocar site. The fascia over this incision was then closed using number 1 Vicryl. The skin was closed using 4-0 Vicryl, in a subcuticular fashion. 0.25% Marcaine with epinephrine was infiltrated along the incisions, both preemptively and at the conclusion of the operation. She tolerated the procedure well, was extubated in the operating room and taken to the recovery room in a stable condition. [place], sponges, and instruments were correct the end of the operation. Job ID: [id number] Dictated Date: 07/06/2016 10:55:06 Automatic Fancy Machine Operator Date: 07/08/2016 13:03:15 / lars
== END 2016-07-06 13:50 | disposition home or self-care (01) ==
LOC: SDC 08:01
PROVIDERS: ATTEND Surgery
DX: K81.1 Chronic cholecystitis (principal)
CPT/HCPCS: 82962; 84703; 87081; 88304